=== PATIENT | male | born 1945 | race Caucasian/White ===

== ENCOUNTER 2025-08-13 14:11 | Emergency (ER) | payer BC ==
[~2025-08-13] VITALS: Ht 177.8 cm; Wt 78.0 kg
[2025-08-13 14:26] VITALS: BP 130/67
[2025-08-13] MEDS ORDERED: BACITRACIN ZINC OINT 15 GM TUBE ONE (16:00)
[2025-08-13] MEDS: BACITRACIN ZINC OINT 15 GM TUBE TOP ONE (16:05)
[2025-08-13] MEDS ORDERED: CEFD300C3 PO (16:19)
[2025-08-13 16:33] VITALS: BP 122/61; O2SAT 96
== END 2025-08-13 16:33 | disposition home or self-care (01) ==
LOC: ER 14:11
DX: S90.122A Contusion of left lesser toe(s) without damage to nail, initial encounter (principal); S90.32XA Contusion of left foot, initial encounter; L03.032 Cellulitis of left toe; M19.079 Primary osteoarthritis, unspecified ankle and foot; Z88.2 Allergy status to sulfonamides; Z88.7 Allergy status to serum and vaccine; X58.XXXA Exposure to other specified factors, initial encounter; Y93.89 Activity, other specified; Y92.89 Other specified places as the place of occurrence of the external cause; Y99.8 Other external cause status
CPT/HCPCS: 73660; A4606; A4663